=== PATIENT | male | born 1960 | race Asian ===

== ENCOUNTER 2023-08-21 16:42 | Inpatient (IN) | payer MEDICAID ==
[~2023-08-21] VITALS: Ht 167.6 cm; Wt 65.9 kg
[2023-08-21] MEDS: SODIUM CHLORIDE 0.9% 1,000 ML IV ONE (17:34)
[2023-08-21 17:49] LABS: BASOPHILS % 0.9 % (0.0-2.0); EOSINOPHILS % 2.4 % (0.0-5.0); HEMOGLOBIN. 12.1 g/dL (14.0-18.0); LYMPHOCYTES % 23.9 % (20.0-50.0); MEAN CORPUSCULAR HEMOGLOBIN 31.6 pg (28.0-32.0); MEAN CORPUSCULAR HGB CONC 35.7 g/dL (31.0-37.0); MEAN CORPUSCULAR VOLUME 88.6 fL (80.0-94.0); MONOCYTES % 5.3 % (2.0-8.0); NEUTROPHILS % 67.5 % (40.0-76.0); PLATELET 352 x1000/uL (130-400); RED BLOOD CELL COUNT 3.84 mill/uL (4.7-6.1); RED CELL DISTRIBUTION WIDTH 13.1 % (11.6-14.6); WHITE BLOOD COUNT 7.3 x1000/uL (4.5-11.0)
[2023-08-21 17:49] LABS: BG BASE EXCESS 1.5 mmol/L (-2.0-2.0); BG CARBOXYHEMOGLOBIN 3.7 % (0.5-1.5); BG DEOXYHEMOGLOBIN 4.1 % (0.0-5.0); BG FRACTION INSPIRED OXYGEN 21; BG HCO3 ACT 26.5 mmol/L (22.0-26.0); BG OXYGEN SATURATION 95.7 % (92.0-98.5); BG OXYHEMOGLOBIN 92.2 % (94.0-97.0); BG PCO2 43.1 mmHg (35.0-45.0); BG PH 7.406 (7.350-7.450); BG SAMPLE SITE RIGHT RADIAL; BG TOTAL HEMOGLOBIN 12.4 g/dL (12.0-18.0); BG VENT MODE ROOM AIR
[2023-08-21 17:55] LABS: CARBON DIOXIDE 28 mEq/L (21-32); CHLORIDE 102 mEq/L (98-107); POTASSIUM 4.3 mEq/L (3.5-5.1); SODIUM 132 mEq/L (136-145)
[2023-08-21 17:56] LABS: CALCIUM 7.5 mg/dL (8.7-10.4)
[2023-08-21 18:00] LABS: CREATININE 1.7 mg/dL (0.6-1.3)
[2023-08-21 18:01] LABS: GLUCOSE 400 mg/dL (70-105); UREA NITROGEN BLOOD 29 mg/dL (9-23)
[2023-08-21 18:02] LABS: ALANINE AMINOTRANSFERASE 13 IU/L (10-49); ALBUMIN 2.8 g/dL (3.2-4.8); ASPARTATE AMINOTRANSFERASE 20 IU/L (<34)
[2023-08-21 18:03] LABS: BILIRUBIN TOTAL 0.2 mg/dL (0.1-1.0); PROTEIN TOTAL 5.3 g/dL (6.0-8.3)
[2023-08-21 18:23] LABS: ETHANOL BLOOD < 10 mg/dL (<10)
[2023-08-21 18:24] LABS: TROPONIN I HIGH SENSITIVITY 1040 ng/L (3.0-53)
[2023-08-21 18:38] LABS: BETA HYDROXYBUTYRATE 0.2 mMol/L (0.0-0.3)
[2023-08-21] MEDS: MORPHINE SULFATE 2 MG/ML CPJ (NOT FOR IM USE) IV ONE (18:57)
[2023-08-21] MEDS: HEPARIN 5000 UNITS/ML VIAL IV ONE (19:00)
[2023-08-21] MEDS: NITROGLYCERIN 0.4MG TABLET SL SL ONE (19:00)
[2023-08-21 19:26] LABS: INR 0.9; PARTIAL THROMBOPLASTIN TIME 36.2 sec (23.4-31.0); PROTHROMBIN TIME 9.6 sec (9.6-11.0)
[2023-08-21] MEDS ORDERED: HEPARIN 60 UNITS/KG BOLUS IV NR (20:00)
[2023-08-21] MEDS: HEPARIN 25,000 UNITS PREMIX 250 ML IV SCH (20:07)
[2023-08-21] MEDS ORDERED: IPRATROPIUM/ALBUTEROL 0.5-3(2.5)MG/3ML NEB NEB PRN (20:15)
[2023-08-21] MEDS ORDERED: DEXTROSE 50% WATER 50ML SYRINGE IV PRN (20:15)
[2023-08-21] MEDS ORDERED: NITROGLYCERIN 0.4MG TABLET SL SL PRN (20:15)
[2023-08-21] MEDS ORDERED: AMLODIPINE 10MG TABLET PO SCH (20:15)
[2023-08-21] MEDS ORDERED: MAGNESIUM/ALUMINUM HYDROXIDE/SIMETHICONE 30ML UDC PO PRN (20:15)
[2023-08-21] MEDS ORDERED: GUAIFENESIN 200MG/10ML SUGAR FREE UDC PO PRN (20:15)
[2023-08-21] MEDS ORDERED: ACETAMINOPHEN 325MG TABLET PO PRN ×2 (20:15)
[2023-08-21] MEDS: NITROGLYCERIN OINT 1GM/INCH UDPKT TD SCH (20:38)
[2023-08-21] MEDS: AMLODIPINE 5MG TABLET PO NR (20:39)
[2023-08-21 20:42] LABS: IRON 36 ug/dL (65-175)
[2023-08-21 20:43] LABS: LDL CHOLESTEROL 225 mg/dL (5-100); TRIGLYCERIDE 208 mg/dL (0-150)
[2023-08-21 20:45] LABS: CHOLESTEROL 276 mg/dL (<200); HDL CHOLESTEROL 40 mg/dL (>55); TOTAL IRON BINDING CAPACITY 256 ug/dl (250-425)
[2023-08-21 20:48] LABS: FOLIC ACID (FOLATE) SERUM 12.44 ng/mL (>5.38); VITAMIN B12 SERUM 1067 pg/mL (211-911)
[2023-08-21 20:49] LABS: T4 FREE 0.91 ng/dL (0.89-1.76); THYROID STIMULATING HORMONE 1.95 uIU/mL (0.55-4.78)
[2023-08-21] MEDS: LORAZEPAM 2MG/ML INJ IV ONE (20:56)
[2023-08-21] MEDS: BLOOD SUGAR DIAGNOSTIC STRIP TEST SCH (21:00)
[2023-08-21] MEDS ORDERED: INSULIN GLARGINE 100 UNITS/ML SUBCUT SCH (22:00)
[2023-08-21] MEDS: ONDANSETRON HCL 4MG/2ML INJ IV PRN (23:48)
[2023-08-22] MEDS ORDERED: HEPARIN BOLUS PRN aPTT <30 IV (02:00)
[2023-08-22] MEDS ORDERED: HEPARIN BOLUS PRN aPTT 30-44 IV (02:00)
[2023-08-22 02:01] LABS: HEMATOCRIT 36.7 % (42.0-52.0); HEMOGLOBIN 12.5 g/dL (14.0-18.0); MEAN CORPUSCULAR HEMOGLOBIN 30.4 pg (28.0-32.0); MEAN CORPUSCULAR VOLUME 89.3 fL (80.0-94.0); PLATELET 345 x1000/uL (130-400); RED BLOOD CELL COUNT 4.11 mill/uL (4.7-6.1); RED CELL DISTRIBUTION WIDTH 13.3 % (11.6-14.6); WHITE BLOOD COUNT 9.7 x1000/uL (4.5-11.0)
[2023-08-22 02:17] LABS: POTASSIUM 4.3 mEq/L (3.5-5.1)
[2023-08-22 02:19] LABS: CALCIUM 7.6 mg/dL (8.7-10.4)
[2023-08-22 02:24] LABS: CREATININE 1.5 mg/dL (0.6-1.3)
[2023-08-22 02:53] VITALS: BP 164/86; PULSE 97; RESP 18; TEMP 97.5
[2023-08-22 03:28] LABS: CREATINE KINASE MB FRACTION 54.2 ng/mL (0.5-3.6)
[2023-08-22] MEDS: INSULIN LISPRO 100 UNITS/ML SUBCUT SCH ×2 (06:42→08:18)
[2023-08-22] MEDS: ENOXAPARIN 60MG/0.6ML SYR SUBCUT SCH ×2 (06:48→17:29)
[2023-08-22 07:08] LABS: CREATINE KINASE MB FRACTION 63.9 ng/mL (0.5-3.6)
[2023-08-22 07:09] LABS: CREATINE KINASE 755 IU/L (46-171)
[2023-08-22 07:10] LABS: PHOSPHORUS 3.4 mg/dL (2.5-4.9)
[2023-08-22 07:14] LABS: BASOPHILS % 0.6 % (0.0-2.0); EOSINOPHILS % 0.2 % (0.0-5.0); HEMATOCRIT. 36.5 % (42.0-52.0); HEMOGLOBIN. 12.6 g/dL (14.0-18.0); LYMPHOCYTES % 14.4 % (20.0-50.0); MEAN CORPUSCULAR HEMOGLOBIN 31.1 pg (28.0-32.0); MEAN CORPUSCULAR HGB CONC 34.7 g/dL (31.0-37.0); MEAN CORPUSCULAR VOLUME 89.6 fL (80.0-94.0); MEAN PLATELET VOLUME 7.7 fl (7.4-10.4); MONOCYTES % 2.8 % (2.0-8.0); PLATELET 361 x1000/uL (130-400); RED BLOOD CELL COUNT 4.07 mill/uL (4.7-6.1); WHITE BLOOD COUNT 8.6 x1000/uL (4.5-11.0)
[2023-08-22 07:45] LABS: TROPONIN I HIGH SENSITIVITY 19194 ng/L (3.0-53)
[2023-08-22 08:00] VITALS: BP 149/79; PULSE 80; RESP 18; TEMP 97.9
[2023-08-22] MEDS: ASPIRIN 325MG EC TABLET PO SCH (08:00)
[2023-08-22] MEDS: METOPROLOL TARTRATE 25MG TABLET PO SCH (08:16)
[2023-08-22] MEDS: FAMOTIDINE 20MG TABLET PO SCH (08:17)
[2023-08-22] MEDS: LOSARTAN 50 MG TABLET PO SCH (08:17)
[2023-08-22] MEDS: AMLODIPINE 10MG TABLET PO SCH (08:18)
[2023-08-22] MEDS ORDERED: DIPHENHYDRAMINE 50MG/ML VIAL ONE (08:42)
[2023-08-22] MEDS ORDERED: HEPARIN 1000 UNITS/ML 10ML ONE (08:42)
[2023-08-22] MEDS ORDERED: VERAPAMIL HCL 2.5 MG/1 ML 2ML VIAL IV ONE (08:42)
[2023-08-22] MEDS ORDERED: LIDOCAINE HCL 1% 20ML VIAL (Pyxis) INJ ONE (08:42)
[2023-08-22] MEDS ORDERED: IODIXANOL 320MG/ML 100 ML BOTTLE IV ONE (08:42)
[2023-08-22] MEDS ORDERED: AMLODIPINE 10MG TABLET PO SCH (09:00)
[2023-08-22] MEDS ORDERED: ASPIRIN 325MG EC TABLET PO SCH (09:00)
[2023-08-22] MEDS: INSULIN GLARGINE 100 UNITS/ML SUBCUT SCH (10:08)
[2023-08-22] MEDS: SODIUM CHLORIDE 0.9% 1,000 ML IV SCH (10:26)
[2023-08-22 12:16] VITALS: BP 109/56; PULSE 66; RESP 18; TEMP 96.9
[2023-08-22] MEDS: DEXT 5%/LACTATED RINGERS 1,000 ML IV SCH (12:49)
[2023-08-22] MEDS: DEXTROSE 50% WATER 50ML SYRINGE IV PRN (13:12)
[2023-08-22 16:00] VITALS: BP 107/64; PULSE 50; RESP 20; TEMP 98.8
[2023-08-22 20:00] VITALS: BP 148/81; PULSE 59; RESP 20; TEMP 97.2
[2023-08-22] MEDS: ATORVASTATIN CALCIUM 40MG TABLET PO SCH (21:29)
[2023-08-23] VITALS: BP 133/69; PULSE 63; RESP 18; TEMP 97.7
[2023-08-23 04:00] VITALS: BP 124/70; PULSE 60; RESP 18; TEMP 97.1
[2023-08-23 08:00] VITALS: BP 150/79; PULSE 56; RESP 18; TEMP 97.9
[2023-08-23] MEDS ORDERED: HEPARIN 1000 UNITS/ML 10ML ONE (08:06)
[2023-08-23] MEDS ORDERED: LIDOCAINE HCL 1% 10 MG/ML 10ML VIAL ONE (08:06)
[2023-08-23] MEDS ORDERED: IODIXANOL 320MG/ML 100 ML BOTTLE IV ONE (08:07)
[2023-08-23] MEDS ORDERED: ATROPINE SULFATE 1MG/10ML SYR IV PRN (11:00)
[2023-08-23] MEDS: CLONIDINE 0.1MG TABLET PO PRN (11:20)
[2023-08-23] MEDS: HYDRALAZINE 20MG/ML VIAL IV PRN (11:59)
[2023-08-23 12:00] VITALS: BP 141/67; PULSE 56; RESP 18; TEMP 97.5
[2023-08-23 20:00] VITALS: BP 133/72; PULSE 76; RESP 19; TEMP 97.4
[2023-08-24] VITALS (7 sets, daily range): BP systolic 133–154; BP diastolic 66–76; PULSE 54–74; RESP 18–21; TEMP 97.5–98.8
[2023-08-24 00:20] LABS: CLARITY URINE CLEAR (CLEAR); COLOR URINE YELLOW (YELLOW); GLUCOSE URINE TRACE (NEGATIVE); KETONES URINE NEGATIVE (NEGATIVE); LEUKOCYTE ESTERASE URINE NEGATIVE (NEGATIVE); NITRITE URINE NEGATIVE (NEGATIVE); OCCULT BLOOD URINE NEGATIVE (NEGATIVE); PH URINE 6.5 (4.5-8.0); PROTEIN URINE 4+ (NEGATIVE); SPECIFIC GRAVITY URINE 1.014 (1.005-1.030); UROBILINOGEN URINE 0.2 E.U./dL (0.2-1.0)
[2023-08-24 00:35] LABS: RBC URINE 0-2 /hpf (0-2); SQUAMOUS EPITHELIAL CELL URINE 1+ /lpf (RARE/1+); WBC URINE 0-2 /hpf (0-2)
[2023-08-24 00:36] LABS: BACTERIA URINE TRACE; HYALINE CASTS URINE 0-5 /lpf
[2023-08-24 08:02] LABS: BASOPHILS % 0.6 % (0.0-2.0); EOSINOPHILS % 2.5 % (0.0-5.0); HEMATOCRIT. 37.1 % (42.0-52.0); HEMOGLOBIN. 12.4 g/dL (14.0-18.0); LYMPHOCYTES % 30.4 % (20.0-50.0); MEAN CORPUSCULAR HEMOGLOBIN 29.8 pg (28.0-32.0); MEAN CORPUSCULAR HGB CONC 33.3 g/dL (31.0-37.0); MEAN CORPUSCULAR VOLUME 89.4 fL (80.0-94.0); MEAN PLATELET VOLUME 7.6 fl (7.4-10.4); MONOCYTES % 5.9 % (2.0-8.0); NEUTROPHILS % 60.6 % (40.0-76.0); PLATELET 453 x1000/uL (130-400); RED BLOOD CELL COUNT 4.15 mill/uL (4.7-6.1); RED CELL DISTRIBUTION WIDTH 13.5 % (11.6-14.6); WHITE BLOOD COUNT 11.7 x1000/uL (4.5-11.0)
[2023-08-24 08:09] LABS: CARBON DIOXIDE 27 mEq/L (21-32); CHLORIDE 108 mEq/L (98-107); POTASSIUM 3.2 mEq/L (3.5-5.1); SODIUM 140 mEq/L (136-145)
[2023-08-24 08:15] LABS: CREATININE 1.5 mg/dL (0.6-1.3); UREA NITROGEN BLOOD 21 mg/dL (9-23)
[2023-08-24 08:33] LABS: GLUCOSE 68 mg/dL (70-105)
[2023-08-24] MEDS ORDERED: NALOXONE HCL 0.4MG/ML VIAL IV PRN (12:00)
[2023-08-24] MEDS: DOCUSATE SODIUM 100MG CAPSULE PO PRN (12:25)
[2023-08-25] VITALS: BP 166/80; PULSE 60; RESP 20; TEMP 97.9
[2023-08-25] MEDS: TRAMADOL 50MG TABLET PO PRN (00:26)
[2023-08-25 04:00] VITALS: BP 140/75; PULSE 58; RESP 20; TEMP 98.1
[2023-08-25 08:00] VITALS: BP 147/77; PULSE 65; RESP 20; TEMP 97.1
[2023-08-25 08:21] LABS: HEMATOCRIT. 33.3 % (42.0-52.0); HEMOGLOBIN. 11.3 g/dL (14.0-18.0); LYMPHOCYTES % 35.2 % (20.0-50.0); MEAN CORPUSCULAR HEMOGLOBIN 30.5 pg (28.0-32.0); MEAN CORPUSCULAR HGB CONC 34.1 g/dL (31.0-37.0); MEAN CORPUSCULAR VOLUME 89.4 fL (80.0-94.0); MEAN PLATELET VOLUME 7.8 fl (7.4-10.4); NEUTROPHILS % 53.8 % (40.0-76.0); PLATELET 363 x1000/uL (130-400); RED BLOOD CELL COUNT 3.72 mill/uL (4.7-6.1); RED CELL DISTRIBUTION WIDTH 13.1 % (11.6-14.6); WHITE BLOOD COUNT 8.7 x1000/uL (4.5-11.0)
[2023-08-25 08:30] LABS: CARBON DIOXIDE 26 mEq/L (21-32); CHLORIDE 109 mEq/L (98-107); POTASSIUM 3.4 mEq/L (3.5-5.1); SODIUM 140 mEq/L (136-145)
[2023-08-25 08:31] LABS: CALCIUM 8.1 mg/dL (8.7-10.4)
[2023-08-25 08:35] LABS: CREATININE 1.5 mg/dL (0.6-1.3)
[2023-08-25 08:36] LABS: GLUCOSE 99 mg/dL (70-105); UREA NITROGEN BLOOD 23 mg/dL (9-23)
[2023-08-25 08:38] LABS: PHOSPHORUS 3.7 mg/dL (2.5-4.9)
[2023-08-25 12:00] VITALS: BP 155/86; PULSE 69; RESP 20; TEMP 98.1
[2023-08-25] MEDS: POTASSIUM CHLORIDE 20MEQ TABLET SR PO NR (13:01)
[2023-08-25] MEDS: LACTULOSE 20G/30ML UDC PO NR (13:01)
[2023-08-25 16:00] VITALS: BP 147/81; PULSE 68; RESP 20; TEMP 98.2
[2023-08-25 16:01] LABS: HEPATITIS B SURFACE ANTIGEN NEGATIVE (Negative)
[2023-08-25 16:22] LABS: HEPATITIS C AB NON REACTIVE (Neg) (Negative)
[2023-08-25 17:06] LABS: CREATININE URINE RANDOM 41.5 mg/dL
[2023-08-25 20:00] VITALS: BP 179/91; PULSE 72; RESP 20; TEMP 98
[2023-08-25 23:06] LABS: BG CARBOXYHEMOGLOBIN 0.6 % (0.5-1.5); BG DEOXYHEMOGLOBIN 6.4 % (0.0-5.0); BG FRACTION INSPIRED OXYGEN 21; BG HCO3 ACT 26.9 mmol/L (22.0-26.0); BG METHEMOGLOBIN 0.1 % (0.0-1.5); BG OXYGEN SATURATION 93.6 % (92.0-98.5); BG OXYHEMOGLOBIN 92.9 % (94.0-97.0); BG PCO2 47.3 mmHg (35.0-45.0); BG PH 7.372 (7.350-7.450); BG PO2 70.3 mmHg (75.0-100.0); BG SAMPLE SITE LEFT RADIAL; BG TOTAL HEMOGLOBIN 14.1 g/dL (12.0-18.0); BG VENT MODE ROOM AIR
[2023-08-26] VITALS (7 sets, daily range): BP systolic 140–174; BP diastolic 63–81; PULSE 56–74; RESP 18–20; TEMP 97–97.8
[2023-08-26] MEDS: ZOLPIDEM TARTRATE 5MG TABLET PO PRN (03:19)
[2023-08-26 06:41] LABS: BASOPHILS % 0.8 % (0.0-2.0); EOSINOPHILS % 4.3 % (0.0-5.0); HEMATOCRIT. 34.9 % (42.0-52.0); LYMPHOCYTES % 36.1 % (20.0-50.0); MEAN CORPUSCULAR HEMOGLOBIN 30.8 pg (28.0-32.0); MEAN CORPUSCULAR HGB CONC 34.4 g/dL (31.0-37.0); MEAN CORPUSCULAR VOLUME 89.7 fL (80.0-94.0); MEAN PLATELET VOLUME 7.4 fl (7.4-10.4); MONOCYTES % 6.5 % (2.0-8.0); NEUTROPHILS % 52.3 % (40.0-76.0); PLATELET 364 x1000/uL (130-400); POTASSIUM 3.6 mEq/L (3.5-5.1); RED BLOOD CELL COUNT 3.89 mill/uL (4.7-6.1); RED CELL DISTRIBUTION WIDTH 13.2 % (11.6-14.6); WHITE BLOOD COUNT 7.9 x1000/uL (4.5-11.0)
[2023-08-26 06:43] LABS: CALCIUM 8.3 mg/dL (8.7-10.4)
[2023-08-26 06:47] LABS: CREATININE 1.3 mg/dL (0.6-1.3)
[2023-08-26] MEDS: ACETAMINOPHEN 325MG TABLET PO PRN (20:46)
[2023-08-26] MEDS: TRAMADOL 50MG TABLET PO PRN (23:33)
[2023-08-27] VITALS (7 sets, daily range): BP systolic 93–183; BP diastolic 54–80; PULSE 61–80; RESP 18–20; TEMP 96.7–98.1
[2023-08-27] MEDS: ZOLPIDEM TARTRATE 5MG TABLET PO PRN (00:27)
[2023-08-27 07:56] LABS: HEMATOCRIT. 35.6 % (42.0-52.0); LYMPHOCYTES % 28.6 % (20.0-50.0); MEAN CORPUSCULAR HEMOGLOBIN 30.4 pg (28.0-32.0); MEAN CORPUSCULAR HGB CONC 33.7 g/dL (31.0-37.0); MEAN CORPUSCULAR VOLUME 90.2 fL (80.0-94.0); MEAN PLATELET VOLUME 7.6 fl (7.4-10.4); NEUTROPHILS % 59.4 % (40.0-76.0); PLATELET 411 x1000/uL (130-400); RED BLOOD CELL COUNT 3.95 mill/uL (4.7-6.1); RED CELL DISTRIBUTION WIDTH 13.3 % (11.6-14.6); WHITE BLOOD COUNT 8.4 x1000/uL (4.5-11.0)
[2023-08-27 08:13] LABS: POTASSIUM 3.8 mEq/L (3.5-5.1)
[2023-08-27 08:15] LABS: CALCIUM 8.4 mg/dL (8.7-10.4)
[2023-08-27 08:19] LABS: CREATININE 1.4 mg/dL (0.6-1.3)
[2023-08-27] MEDS: FUROSEMIDE 20MG/2ML VIAL IVP SCH (20:17)
[2023-08-27] MEDS: LORAZEPAM 0.5MG TABLET PO PRN (20:27)
[2023-08-28] VITALS: BP_SYST 120; BP_SYST 126; BP_SYST 149; BP_SYST 183; BP_DIAS 55; BP_DIAS 62; BP_DIAS 68; BP_DIAS 80; PULSE 60; PULSE 78; PULSE 80; RESP 20; TEMP 97.1; TEMP 97.6; TEMP 97.8
[2023-08-28 04:00] VITALS: BP 139/62; PULSE 61; RESP 18; TEMP 97.3
[2023-08-28 05:55] LABS: POTASSIUM 4.1 mEq/L (3.5-5.1)
[2023-08-28 05:56] LABS: CALCIUM 8.2 mg/dL (8.7-10.4)
[2023-08-28 06:01] LABS: CREATININE 1.4 mg/dL (0.6-1.3)
[2023-08-28 06:07] LABS: EOSINOPHILS % 5.9 % (0.0-5.0); HEMOGLOBIN. 11.3 g/dL (14.0-18.0); LYMPHOCYTES % 38.1 % (20.0-50.0); MEAN CORPUSCULAR HEMOGLOBIN 30.8 pg (28.0-32.0); MEAN CORPUSCULAR HGB CONC 34.3 g/dL (31.0-37.0); MEAN CORPUSCULAR VOLUME 89.8 fL (80.0-94.0); MEAN PLATELET VOLUME 7.6 fl (7.4-10.4); MONOCYTES % 8.1 % (2.0-8.0); NEUTROPHILS % 46.9 % (40.0-76.0); PLATELET 360 x1000/uL (130-400); RED BLOOD CELL COUNT 3.67 mill/uL (4.7-6.1); RED CELL DISTRIBUTION WIDTH 13.1 % (11.6-14.6); WHITE BLOOD COUNT 7.2 x1000/uL (4.5-11.0)
[2023-08-28 08:00] VITALS: BP 129/65; PULSE 63; RESP 18; TEMP 97.6
[2023-08-28 12:00] VITALS: BP 139/62; PULSE 65; RESP 18; TEMP 97
[2023-08-28 16:00] VITALS: BP 131/61; PULSE 62; RESP 18; TEMP 97.2
[2023-08-28] MEDS ORDERED: ALPRAZOLAM 0.25 MG TABLET PO PRN (16:30)
[2023-08-28] MEDS ORDERED: ACETAMINOPHEN 325MG TABLET PO PRN ×2 (16:30)
[2023-08-28 20:00] VITALS: BP 176/80; PULSE 74; RESP 18; TEMP 98.1
[2023-08-28] MEDS ORDERED: BISACODYL 10MG SUPP PR PRN (21:00)
[2023-08-28] MEDS: DOCUSATE SODIUM 100MG CAPSULE PO SCH (21:10)
[2023-08-28] MEDS: ASCORBIC ACID 500 MG TABLET PO SCH (21:11)
[2023-08-28] MEDS: ALLOPURINOL 300 MG TABLET PO SCH (21:11)
[2023-08-28] MEDS: CHLORHEXIDINE GLUCONATE 4% EXTERNAL USE TOP SCH (21:12)
[2023-08-29] VITALS (47 sets, daily range): BP systolic 66–168; BP diastolic 38–98; PULSE 56–94; RESP 13–24; TEMP 97.1–98.2; O2SAT 97
[2023-08-29] MEDS: CHLORHEXIDINE GLUCONATE 4% EXTERNAL USE TOP SCH (04:35)
[2023-08-29] MEDS: CEFAZOLIN 2GM/100ML 100 ML IV SCH (04:55)
[2023-08-29] MEDS ORDERED: NOREPINEPHRINE 8MG/250ML PMX 250 ML IV NR (05:00)
[2023-08-29] MEDS ORDERED: AMINOCAPROIC ACID 5,000 MG in SODIUM CHLORIDE 0.9% 250 ML IV NR (05:00)
[2023-08-29] MEDS ORDERED: EPINEPHRINE 5 MG in DEXT 5% WATER 250 ML IV NR (05:00)
[2023-08-29] MEDS ORDERED: INSULIN REGULAR 100 U/100 ML PREMIX IV NR (05:00)
[2023-08-29] MEDS ORDERED: NICARDIPINE 40MG/200ML PREMIX 200 ML IV NR (05:00)
[2023-08-29] MEDS ORDERED: PAPAVERINE HCL 180MG in SODIUM CHLORIDE 0.9% 24ML IV NR (05:00)
[2023-08-29] MEDS ORDERED: CEFAZOLIN 2GM/100ML 100 ML IV NR (05:00)
[2023-08-29] MEDS ORDERED: DEL NIDO CARDIOPLEGIA 1,000 ML (PREMIX) IV NR ×2 (05:00)
[2023-08-29] MEDS ORDERED: DOBUTAMINE 250 MG/250 ML PREMIX IV NR (05:00)
[2023-08-29] MEDS ORDERED: LR with VERAPAMIL, NTG, HEPARIN, SODIUM BICARBONATE (Soln) IV NR (05:00)
[2023-08-29 05:11] LABS: BASOPHILS % 0.7 % (0.0-2.0); EOSINOPHILS % 5.8 % (0.0-5.0); HEMATOCRIT. 33.5 % (42.0-52.0); HEMOGLOBIN. 11.7 g/dL (14.0-18.0); LYMPHOCYTES % 36.3 % (20.0-50.0); MEAN CORPUSCULAR HGB CONC 34.9 g/dL (31.0-37.0); MEAN CORPUSCULAR VOLUME 88.9 fL (80.0-94.0); MEAN PLATELET VOLUME 7.5 fl (7.4-10.4); MONOCYTES % 7.1 % (2.0-8.0); NEUTROPHILS % 50.1 % (40.0-76.0); PLATELET 358 x1000/uL (130-400); RED BLOOD CELL COUNT 3.76 mill/uL (4.7-6.1); RED CELL DISTRIBUTION WIDTH 13.3 % (11.6-14.6); WHITE BLOOD COUNT 7.7 x1000/uL (4.5-11.0)
[2023-08-29 05:18] LABS: CHLORIDE 110 mEq/L (98-107); POTASSIUM 3.8 mEq/L (3.5-5.1); SODIUM 139 mEq/L (136-145)
[2023-08-29 05:20] LABS: CALCIUM 8.5 mg/dL (8.7-10.4); CARBON DIOXIDE 24 mEq/L (21-32)
[2023-08-29 05:25] LABS: CREATININE 1.2 mg/dL (0.6-1.3); GLUCOSE 229 mg/dL (70-105); UREA NITROGEN BLOOD 20 mg/dL (9-23)
[2023-08-29 05:27] LABS: ALANINE AMINOTRANSFERASE 28 IU/L (10-49); ALBUMIN 2.6 g/dL (3.2-4.8); ASPARTATE AMINOTRANSFERASE 30 IU/L (<34); PHOSPHORUS 3.5 mg/dL (2.5-4.9)
[2023-08-29 05:28] LABS: BILIRUBIN TOTAL 0.2 mg/dL (0.1-1.0); PROTEIN TOTAL 4.6 g/dL (6.0-8.3)
[2023-08-29] MEDS ORDERED: POLYMYXIN B SULFATE 500000 UNITS/VIAL ONE (05:29)
[2023-08-29] MEDS ORDERED: SKIN ADHESIVE 0.7 GM EA TOP ONE (05:30)
[2023-08-29] MEDS ORDERED: THROMBIN (BOVINE) 5000 UNITS/VIAL TOP ONE (05:30)
[2023-08-29] MEDS ORDERED: ACETAMINOPHEN 500MG TABLET ONE (05:32)
[2023-08-29] MEDS ORDERED: HEPARIN 1000 UNITS/ML 10ML ONE ×2 (05:34→08:29)
[2023-08-29 05:41] LABS: INR 0.9; PROTHROMBIN TIME 10.1 sec (9.6-11.0)
[2023-08-29] MEDS ORDERED: INSULIN REGULAR 100 U/100 ML PREMIX IV PRN (06:00)
[2023-08-29] MEDS ORDERED: EPINEPHRINE 5 MG in DEXT 5% WATER 250 ML IV PRN (06:00)
[2023-08-29] MEDS ORDERED: PAPAVERINE HCL 180MG in SODIUM CHLORIDE 0.9% 24ML IV PRN (06:00)
[2023-08-29] MEDS ORDERED: NOREPINEPHRINE 8MG/250ML PMX 250 ML IV PRN (06:00)
[2023-08-29] MEDS ORDERED: DEL NIDO CARDIOPLEGIA 1,000 ML (PREMIX) IV SCH ×2 (06:00)
[2023-08-29] MEDS ORDERED: PROPOFOL 200MG/20ML VIAL IV ONE (07:14)
[2023-08-29] MEDS ORDERED: LIDOCAINE HCL/PF 2% 20MG/ML 5 ML/VIAL ONE (07:14)
[2023-08-29] MEDS ORDERED: ROCURONIUM BROMIDE 10MG/ML VIAL 5ML IV ONE (07:14)
[2023-08-29] MEDS ORDERED: MIDAZOLAM HCL 2 MG/2 ML VIAL ONE (07:15)
[2023-08-29] MEDS ORDERED: FENTANYL CITRATE/PF 50MCG/ML 5ML VIAL ONE (07:15)
[2023-08-29] MEDS ORDERED: ONDANSETRON HCL 4MG/2ML INJ ONE ×2 (07:16→12:42)
[2023-08-29] MEDS ORDERED: METOCLOPRAMIDE HCL 10MG/2ML VIAL ONE (07:16)
[2023-08-29] MEDS ORDERED: ESMOLOL HCL 10MG/ML 10ML VIAL IV ONE (07:16)
[2023-08-29] MEDS ORDERED: LABETALOL HCL 5MG/ML VIAL 20ML IV ONE (07:48)
[2023-08-29] MEDS ORDERED: VECURONIUM BROMIDE 10 MG/VIAL IV ONE ×2 (08:04→10:59)
[2023-08-29 08:10] LABS: ANTI-NUCLEAR ANTIBODIES DIRECT Negative (Negative); COMPLEMENT C3 139 mg/dL (82-167); COMPLEMENT C4 41 mg/dL (12-38)
[2023-08-29] MEDS ORDERED: AMINOCAPROIC ACID 250 MG/ML 20ML VIAL ONE (08:25)
[2023-08-29] MEDS ORDERED: SODIUM BICARBONATE 8.4% 1 MEQ/ML 50ML SYR IV ONE (09:49)
[2023-08-29] MEDS ORDERED: PROPOFOL 10MG/ML 100ML 100 ML IV ONE ×2 (10:03→13:25)
[2023-08-29] MEDS ORDERED: CEFAZOLIN SODIUM 1000MG/VIAL ONE (10:04)
[2023-08-29 10:06] LABS: A/G RATIO 0.7 (0.7-1.7); ALBUMIN 1.7 g/dL (2.9-4.4); ALPHA-1-GLOBULIN 0.2 g/dL (0.0-0.4); ALPHA-2-GLOBULIN 0.9 g/dL (0.4-1.0); BETA GLOBULIN 0.9 g/dL (0.7-1.3); GAMMA GLOBULINS 0.5 g/dL (0.4-1.8); GLOBULIN TOTAL 2.6 g/dL (2.2-3.9); M-SPIKE Not Observed g/dL (Not Observed); TOTAL PROTEIN SERUM 4.3 g/dL (6.0-8.5)
[2023-08-29] MEDS ORDERED: MAGNESIUM 2 G PREMIX 50 ML IV PRN (11:00)
[2023-08-29] MEDS ORDERED: MAGNESIUM 1 G PREMIX 100 ML IV PRN ×2 (11:00→14:15)
[2023-08-29] MEDS ORDERED: MAGNESIUM SULFATE 3 GM in DEXT 5% WATER 100 ML IV PRN ×2 (11:00→14:15)
[2023-08-29] MEDS ORDERED: DESMOPRESSIN ACETATE IVPB 20 MCG in SODIUM CHLORIDE 0.9% 50 ML IV NR (11:45)
[2023-08-29] MEDS ORDERED: KCL 10MEQ/50ML PREMIX 200 ML IV PRN (12:00)
[2023-08-29] MEDS ORDERED: KCL 10MEQ/50ML PREMIX 100 ML IV PRN (12:00)
[2023-08-29] MEDS ORDERED: PROTAMINE SULFATE 10MG/ML VIAL 25ML IV ONE (12:14)
[2023-08-29] MEDS ORDERED: CALCIUM CHLORIDE 1GM/10ML SYR IV ONE (12:22)
[2023-08-29] MEDS ORDERED: HYDRALAZINE 20MG/ML VIAL ONE (12:49)
[2023-08-29] MEDS ORDERED: FENTANYL CITRATE/PF 50MCG/ML 2ML VIAL ONE (12:49)
[2023-08-29] MEDS ORDERED: NEOSTIGMINE METHYLSULFATE 1MG/ML 10 ML VIAL ONE (13:22)
[2023-08-29] MEDS ORDERED: GLYCOPYRROLATE 0.2 MG/ML 2ML VIAL ONE (13:22)
[2023-08-29 13:32] LABS: BASOPHILS % 0.6 % (0.0-2.0); HEMATOCRIT. 33.4 % (42.0-52.0); HEMOGLOBIN. 11.6 g/dL (14.0-18.0); LYMPHOCYTES % 19.3 % (20.0-50.0); MEAN CORPUSCULAR HEMOGLOBIN 30.8 pg (28.0-32.0); MEAN CORPUSCULAR HGB CONC 34.7 g/dL (31.0-37.0); MEAN CORPUSCULAR VOLUME 88.8 fL (80.0-94.0); MEAN PLATELET VOLUME 7.2 fl (7.4-10.4); MONOCYTES % 3.5 % (2.0-8.0); NEUTROPHILS % 74.6 % (40.0-76.0); PLATELET 243 x1000/uL (130-400); RED BLOOD CELL COUNT 3.76 mill/uL (4.7-6.1); RED CELL DISTRIBUTION WIDTH 13.7 % (11.6-14.6); WHITE BLOOD COUNT 12.8 x1000/uL (4.5-11.0)
[2023-08-29 13:50] LABS: CARBON DIOXIDE 26 mEq/L (21-32); CHLORIDE 107 mEq/L (98-107); POTASSIUM 3.6 mEq/L (3.5-5.1); SODIUM 141 mEq/L (136-145)
[2023-08-29 13:51] LABS: CALCIUM 9.5 mg/dL (8.7-10.4)
[2023-08-29 13:55] LABS: CREATININE 1.3 mg/dL (0.6-1.3); GLUCOSE 116 mg/dL (70-105); PARTIAL THROMBOPLASTIN TIME 23.2 sec (23.4-31.0); PROTHROMBIN TIME 10.8 sec (9.6-11.0)
[2023-08-29 13:56] LABS: UREA NITROGEN BLOOD 17 mg/dL (9-23)
[2023-08-29 13:57] LABS: ALANINE AMINOTRANSFERASE 22 IU/L (10-49); ALBUMIN 2.6 g/dL (3.2-4.8); ASPARTATE AMINOTRANSFERASE 39 IU/L (<34)
[2023-08-29 13:58] LABS: BILIRUBIN TOTAL 0.2 mg/dL (0.1-1.0); PROTEIN TOTAL 4.1 g/dL (6.0-8.3)
[2023-08-29] MEDS ORDERED: DEXTROSE 50% WATER 50ML SYRINGE IV PRN (14:00)
[2023-08-29] MEDS: BLOOD SUGAR DIAGNOSTIC STRIP TEST SCH (14:00)
[2023-08-29] MEDS ORDERED: SEVOFLURANE 250 ML LIQUID INH ONE (14:12)
[2023-08-29] MEDS: ALBUMIN HUMAN 25GM/500ML (5%) IV NR (14:14)
[2023-08-29] MEDS ORDERED: SODIUM CHLORIDE 0.9% 500 ML IV PRN (14:15)
[2023-08-29] MEDS ORDERED: DOPAMINE 400MG/250ML PREMIX 250 ML IV PRN (14:15)
[2023-08-29] MEDS ORDERED: ACETAMINOPHEN 325MG TABLET PO PRN (14:15)
[2023-08-29] MEDS ORDERED: ALBUMIN HUMAN 12.5G/250ML (5%) IV PRN (14:15)
[2023-08-29] MEDS: AMINOCAPROIC ACID 5,000 MG in SODIUM CHLORIDE 0.9% 250 ML IV PRN (14:24)
[2023-08-29] MEDS: DOPAMINE 400MG/250ML PREMIX 250 ML IV NR (14:25)
[2023-08-29] MEDS: INSULIN REGULAR 100U/100ML PMX 100 ML IV PRN (14:26)
[2023-08-29] MEDS: DEXMEDETOMIDINE 400 MCG/100 ML 100 ML IV PRN (14:41)
[2023-08-29] MEDS: DEXT 5%/0.45% NACL 1000ML 1,000 ML IV SCH (14:42)
[2023-08-29] MEDS ORDERED: LORAZEPAM 2MG/ML INJ IV PRN (15:00)
[2023-08-29 15:01] LABS: BG BASE EXCESS -3.7 mmol/L (-2.0-2.0); BG CARBOXYHEMOGLOBIN 0.3 % (0.5-1.5); BG DEOXYHEMOGLOBIN 9.7 % (0.0-5.0); BG FRACTION INSPIRED OXYGEN 100; BG HCO3 ACT 22.7 mmol/L (22.0-26.0); BG METHEMOGLOBIN 0.3 % (0.0-1.5); BG OXYGEN SATURATION 90.2 % (92.0-98.5); BG OXYHEMOGLOBIN 89.7 % (94.0-97.0); BG PCO2 46.7 mmHg (35.0-45.0); BG PH 7.305 (7.350-7.450); BG PO2 62.2 mmHg (75.0-100.0); BG SAMPLE SITE ALINE; BG TOTAL HEMOGLOBIN 11.3 g/dL (12.0-18.0); BG VENT MODE MASK - NRB
[2023-08-29] MEDS: FENTANYL CITRATE/PF 50MCG/ML 2ML VIAL IV NR (15:02)
[2023-08-29] MEDS: KCL 10MEQ/50ML PREMIX 150 ML IV PRN (15:28)
[2023-08-29] MEDS ORDERED: NALOXONE HCL 0.4MG/ML VIAL IV PRN (15:30)
[2023-08-29] MEDS: MAGNESIUM HYDROXIDE 400MG/5ML 30ML UDC PO SCH (16:00)
[2023-08-29] MEDS: DOCUSATE SODIUM 100MG CAPSULE PO SCH (16:15)
[2023-08-29] MEDS: CEFAZOLIN 1000MG PREMIX 50 ML IV SCH (16:32)
[2023-08-29] MEDS: FAMOTIDINE 20MG/2ML VIAL IV SCH (16:53)
[2023-08-29] MEDS: NICARDIPINE 40MG/200ML PREMIX 200 ML IV PRN (17:55)
[2023-08-29] MEDS: MORPHINE SULFATE 2 MG/ML CPJ (NOT FOR IM USE) IV PRN (18:08)
[2023-08-29] MEDS: ONDANSETRON HCL 4MG/2ML INJ IV PRN (20:06)
[2023-08-29 20:12] LABS: CHLORIDE 114 mEq/L (98-107); POTASSIUM 4.3 mEq/L (3.5-5.1); SODIUM 144 mEq/L (136-145)
[2023-08-29 20:13] LABS: CARBON DIOXIDE 24 mEq/L (21-32)
[2023-08-29 20:14] LABS: CALCIUM 9.5 mg/dL (8.7-10.4)
[2023-08-29 20:15] LABS: HEMATOCRIT. 30.8 % (42.0-52.0); HEMOGLOBIN. 10.8 g/dL (14.0-18.0); MEAN CORPUSCULAR HEMOGLOBIN 31.2 pg (28.0-32.0); MEAN CORPUSCULAR HGB CONC 34.9 g/dL (31.0-37.0); MEAN CORPUSCULAR VOLUME 89.3 fL (80.0-94.0); MEAN PLATELET VOLUME 7.1 fl (7.4-10.4); PLATELET 231 x1000/uL (130-400); RED BLOOD CELL COUNT 3.45 mill/uL (4.7-6.1); RED CELL DISTRIBUTION WIDTH 14.1 % (11.6-14.6); WHITE BLOOD COUNT 12.2 x1000/uL (4.5-11.0)
[2023-08-29 20:18] LABS: CREATININE 1.6 mg/dL (0.6-1.3); DIFFERENTIAL COMMENT 1; GLUCOSE 92 mg/dL (70-105); UREA NITROGEN BLOOD 20 mg/dL (9-23)
[2023-08-29 20:21] LABS: PHOSPHORUS 2.2 mg/dL (2.5-4.9)
[2023-08-29] MEDS: IPRATROPIUM/ALBUTEROL 0.5-3(2.5)MG/3ML NEB HHN SCH (20:41)
[2023-08-29] MEDS: MAGNESIUM 2 G PREMIX 50 ML IV PRN (21:19)
[2023-08-29 21:36] LABS: PLATELET ESTIMATE NORMAL
[2023-08-29] MEDS: OXYCODONE HCL/ACETAMINOPHEN 5/325MG TABLET PO PRN (23:17)
[2023-08-30] VITALS (98 sets, daily range): BP systolic 104–178; BP diastolic 48–110; PULSE 70–94; RESP 0–26; TEMP 98.2–99.8; O2SAT 92–100
[2023-08-30 02:21] LABS: HEMATOCRIT 31.1 % (42.0-52.0); HEMOGLOBIN 10.7 g/dL (14.0-18.0); MEAN CORPUSCULAR HEMOGLOBIN 30.4 pg (28.0-32.0); MEAN CORPUSCULAR HGB CONC 34.3 g/dL (31.0-37.0); MEAN CORPUSCULAR VOLUME 88.7 fL (80.0-94.0); PLATELET 216 x1000/uL (130-400); RED BLOOD CELL COUNT 3.51 mill/uL (4.7-6.1); RED CELL DISTRIBUTION WIDTH 14.2 % (11.6-14.6); WHITE BLOOD COUNT 11.2 x1000/uL (4.5-11.0)
[2023-08-30 02:26] LABS: CHLORIDE 113 mEq/L (98-107); POTASSIUM 4.3 mEq/L (3.5-5.1); SODIUM 144 mEq/L (136-145)
[2023-08-30 02:27] LABS: CALCIUM 9.6 mg/dL (8.7-10.4); CARBON DIOXIDE 25 mEq/L (21-32)
[2023-08-30 02:32] LABS: CREATININE 1.8 mg/dL (0.6-1.3); GLUCOSE 115 mg/dL (70-105); UREA NITROGEN BLOOD 22 mg/dL (9-23)
[2023-08-30 02:34] LABS: PHOSPHORUS 3.9 mg/dL (2.5-4.9)
[2023-08-30 04:25] LABS: BG BASE EXCESS -1.7 mmol/L (-2.0-2.0); BG CARBOXYHEMOGLOBIN 0.3 % (0.5-1.5); BG DEOXYHEMOGLOBIN 2.6 % (0.0-5.0); BG FRACTION INSPIRED OXYGEN 32; BG HCO3 ACT 22.8 mmol/L (22.0-26.0); BG METHEMOGLOBIN 0.2 % (0.0-1.5); BG OXYGEN SATURATION 97.4 % (92.0-98.5); BG OXYHEMOGLOBIN 96.9 % (94.0-97.0); BG PCO2 37.5 mmHg (35.0-45.0); BG PH 7.401 (7.350-7.450); BG PO2 109.3 mmHg (75.0-100.0); BG SAMPLE SITE ALINE; BG TOTAL HEMOGLOBIN 11.4 g/dL (12.0-18.0); BG VENT MODE NASAL CANNULA
[2023-08-30 05:22] LABS: CHLORIDE 113 mEq/L (98-107); POTASSIUM 4.2 mEq/L (3.5-5.1); SODIUM 144 mEq/L (136-145)
[2023-08-30 05:23] LABS: BASOPHILS % 0.2 % (0.0-2.0); CARBON DIOXIDE 25 mEq/L (21-32); EOSINOPHILS % 0.1 % (0.0-5.0); HEMATOCRIT. 30.6 % (42.0-52.0); HEMOGLOBIN. 10.5 g/dL (14.0-18.0); LYMPHOCYTES % 10.7 % (20.0-50.0); MEAN CORPUSCULAR HEMOGLOBIN 30.9 pg (28.0-32.0); MEAN CORPUSCULAR HGB CONC 34.2 g/dL (31.0-37.0); MEAN CORPUSCULAR VOLUME 90.2 fL (80.0-94.0); MEAN PLATELET VOLUME 7.8 fl (7.4-10.4); MONOCYTES % 6.8 % (2.0-8.0); NEUTROPHILS % 82.2 % (40.0-76.0); PLATELET 222 x1000/uL (130-400); RED BLOOD CELL COUNT 3.39 mill/uL (4.7-6.1); RED CELL DISTRIBUTION WIDTH 14.1 % (11.6-14.6); WHITE BLOOD COUNT 11.2 x1000/uL (4.5-11.0)
[2023-08-30 05:24] LABS: CALCIUM 9.5 mg/dL (8.7-10.4)
[2023-08-30] MEDS: NITROGLYCERIN 0.4MG TABLET SL SL PRN (05:25)
[2023-08-30 05:28] LABS: CREATININE 1.9 mg/dL (0.6-1.3); GLUCOSE 84 mg/dL (70-105)
[2023-08-30 05:29] LABS: UREA NITROGEN BLOOD 22 mg/dL (9-23)
[2023-08-30 05:30] LABS: ALANINE AMINOTRANSFERASE 27 IU/L (10-49); ALBUMIN 3.3 g/dL (3.2-4.8); ASPARTATE AMINOTRANSFERASE 77 IU/L (<34)
[2023-08-30 05:31] LABS: BILIRUBIN TOTAL 0.3 mg/dL (0.1-1.0); PHOSPHORUS 4.8 mg/dL (2.5-4.9); PROTEIN TOTAL 4.8 g/dL (6.0-8.3)
[2023-08-30] MEDS: ASPIRIN 81MG EC TABLET PO SCH (14:50)
[2023-08-30] MEDS: METOPROLOL SUCCINATE 50MG ER TABLET PO SCH (14:52)
[2023-08-30] MEDS: DEXTROSE 50% WATER 50ML SYRINGE IV PRN (20:12)
[2023-08-30] MEDS: ATORVASTATIN CALCIUM 20MG TABLET PO SCH (21:29)
[2023-08-31] VITALS (92 sets, daily range): BP systolic 85–147; BP diastolic 40–84; PULSE 79–96; RESP 7–28; TEMP 98.4–99.8; O2SAT 94–98
[2023-08-31 06:35] LABS: BASOPHILS % 0.4 % (0.0-2.0); EOSINOPHILS % 0.3 % (0.0-5.0); HEMATOCRIT. 34.6 % (42.0-52.0); HEMOGLOBIN. 11.7 g/dL (14.0-18.0); LYMPHOCYTES % 12.3 % (20.0-50.0); MEAN CORPUSCULAR HEMOGLOBIN 30.7 pg (28.0-32.0); MEAN CORPUSCULAR HGB CONC 33.7 g/dL (31.0-37.0); MEAN CORPUSCULAR VOLUME 91.2 fL (80.0-94.0); MEAN PLATELET VOLUME 7.4 fl (7.4-10.4); MONOCYTES % 7.5 % (2.0-8.0); NEUTROPHILS % 79.5 % (40.0-76.0); PLATELET 233 x1000/uL (130-400); RED CELL DISTRIBUTION WIDTH 14.3 % (11.6-14.6); WHITE BLOOD COUNT 12.7 x1000/uL (4.5-11.0)
[2023-08-31 06:38] LABS: CARBON DIOXIDE 23 mEq/L (21-32); CHLORIDE 105 mEq/L (98-107); POTASSIUM 4.2 mEq/L (3.5-5.1)
[2023-08-31 06:39] LABS: CALCIUM 8.8 mg/dL (8.7-10.4)
[2023-08-31 06:43] LABS: CREATININE 1.8 mg/dL (0.6-1.3); GLUCOSE 110 mg/dL (70-105)
[2023-08-31 06:44] LABS: UREA NITROGEN BLOOD 22 mg/dL (9-23)
[2023-08-31 06:46] LABS: PHOSPHORUS 5.6 mg/dL (2.5-4.9)
[2023-08-31 06:59] LABS: SODIUM 135 mEq/L (136-145)
[2023-08-31] MEDS: FUROSEMIDE 20MG/2ML VIAL IVP NR (08:40)
[2023-08-31] MEDS: FAMOTIDINE 20MG TABLET PO SCH (08:41)
[2023-08-31] MEDS: TAMSULOSIN HCL 0.4MG SR CAPSULE PO SCH (08:44)
[2023-08-31] MEDS ORDERED: FAMOTIDINE 20MG/2ML VIAL IV SCH (09:00)
[2023-08-31] MEDS: INSULIN GLARGINE 100 UNITS/ML SUBCUT SCH (11:06)
[2023-08-31] MEDS: BLOOD SUGAR DIAGNOSTIC STRIP TEST SCH ×2 (12:04→21:00)
[2023-08-31] MEDS ORDERED: LACTULOSE 20G/30ML UDC PO SCH (18:00)
[2023-08-31] MEDS ORDERED: DEXTROSE 50% WATER 50ML SYRINGE IV PRN (18:00)
[2023-08-31] MEDS: INSULIN LISPRO 100 UNITS/ML SUBCUT SCH (18:20)
[2023-08-31] MEDS: ATORVASTATIN CALCIUM 40MG TABLET PO SCH (21:36)
[2023-08-31] MEDS: LACTULOSE 20G/30ML UDC PO SCH (21:36)
[2023-09-01] VITALS (12 sets, daily range): BP systolic 110–127; BP diastolic 64–77; PULSE 82–96; RESP 14–21; TEMP 98.4–99; O2SAT 94–96
[2023-09-01 07:07] LABS: BASOPHILS % 0.3 % (0.0-2.0); HEMATOCRIT. 32.3 % (42.0-52.0); HEMOGLOBIN. 11.1 g/dL (14.0-18.0); LYMPHOCYTES % 10.2 % (20.0-50.0); MEAN CORPUSCULAR HEMOGLOBIN 30.8 pg (28.0-32.0); MEAN CORPUSCULAR HGB CONC 34.4 g/dL (31.0-37.0); MEAN CORPUSCULAR VOLUME 89.6 fL (80.0-94.0); MEAN PLATELET VOLUME 7.9 fl (7.4-10.4); MONOCYTES % 7.2 % (2.0-8.0); NEUTROPHILS % 81.3 % (40.0-76.0); PLATELET 239 x1000/uL (130-400); RED BLOOD CELL COUNT 3.61 mill/uL (4.7-6.1); RED CELL DISTRIBUTION WIDTH 14.1 % (11.6-14.6); WHITE BLOOD COUNT 9.4 x1000/uL (4.5-11.0)
[2023-09-01 07:24] LABS: CHLORIDE 104 mEq/L (98-107); POTASSIUM 4.6 mEq/L (3.5-5.1); SODIUM 133 mEq/L (136-145)
[2023-09-01 07:25] LABS: CALCIUM 8.5 mg/dL (8.7-10.4); CARBON DIOXIDE 23 mEq/L (21-32)
[2023-09-01 07:30] LABS: CREATININE 1.6 mg/dL (0.6-1.3); GLUCOSE 87 mg/dL (70-105); UREA NITROGEN BLOOD 33 mg/dL (9-23)
[2023-09-01] MEDS: CALCIUM ACETATE 667MG CAPSULE PO SCH (12:20)
[2023-09-01 15:01] LABS: BASOPHILS % 0.3 % (0.0-2.0); EOSINOPHILS % 0.7 % (0.0-5.0); HEMATOCRIT. 32.4 % (42.0-52.0); HEMOGLOBIN. 11.1 g/dL (14.0-18.0); LYMPHOCYTES % 11.8 % (20.0-50.0); MEAN CORPUSCULAR HEMOGLOBIN 30.6 pg (28.0-32.0); MEAN CORPUSCULAR HGB CONC 34.2 g/dL (31.0-37.0); MEAN CORPUSCULAR VOLUME 89.4 fL (80.0-94.0); MEAN PLATELET VOLUME 7.5 fl (7.4-10.4); NEUTROPHILS % 80.2 % (40.0-76.0); PLATELET 256 x1000/uL (130-400); RED BLOOD CELL COUNT 3.63 mill/uL (4.7-6.1); RED CELL DISTRIBUTION WIDTH 13.7 % (11.6-14.6); WHITE BLOOD COUNT 8.1 x1000/uL (4.5-11.0)
[2023-09-01 15:06] LABS: POTASSIUM 4.6 mEq/L (3.5-5.1)
[2023-09-01 15:07] LABS: CALCIUM 8.4 mg/dL (8.7-10.4)
[2023-09-01 15:11] LABS: CREATININE 1.6 mg/dL (0.6-1.3)
[2023-09-02] VITALS (12 sets, daily range): BP systolic 118–139; BP diastolic 65–75; PULSE 83–98; RESP 12–22; TEMP 98–98.7; O2SAT 97–100
[2023-09-02] MEDS: OXYCODONE HCL/ACETAMINOPHEN 5/325MG TABLET PO PRN (13:49)
[2023-09-03] VITALS (11 sets, daily range): BP systolic 116–136; BP diastolic 60–87; PULSE 86–102; RESP 12–22; TEMP 97.6–98.7; O2SAT 88–98
[2023-09-03 07:14] LABS: BASOPHILS % 0.4 % (0.0-2.0); EOSINOPHILS % 3.8 % (0.0-5.0); HEMATOCRIT. 32.3 % (42.0-52.0); HEMOGLOBIN. 11.2 g/dL (14.0-18.0); LYMPHOCYTES % 21.3 % (20.0-50.0); MEAN CORPUSCULAR HEMOGLOBIN 30.9 pg (28.0-32.0); MEAN CORPUSCULAR HGB CONC 34.7 g/dL (31.0-37.0); MEAN CORPUSCULAR VOLUME 88.9 fL (80.0-94.0); MEAN PLATELET VOLUME 7.2 fl (7.4-10.4); MONOCYTES % 9.3 % (2.0-8.0); NEUTROPHILS % 65.2 % (40.0-76.0); PLATELET 337 x1000/uL (130-400); RED BLOOD CELL COUNT 3.63 mill/uL (4.7-6.1); RED CELL DISTRIBUTION WIDTH 13.5 % (11.6-14.6); WHITE BLOOD COUNT 7.7 x1000/uL (4.5-11.0)
[2023-09-03 07:18] LABS: CARBON DIOXIDE 25 mEq/L (21-32); CHLORIDE 105 mEq/L (98-107); POTASSIUM 4.6 mEq/L (3.5-5.1); SODIUM 133 mEq/L (136-145)
[2023-09-03 07:24] LABS: CREATININE 1.4 mg/dL (0.6-1.3); GLUCOSE 103 mg/dL (70-105); UREA NITROGEN BLOOD 37 mg/dL (9-23)
[2023-09-03 07:26] LABS: PHOSPHORUS 5.6 mg/dL (2.5-4.9)
[2023-09-03] MEDS ORDERED: MORPHINE SULFATE 4 MG/ML INJ (FOR IV/IM USE) IV PRN (22:15)
[2023-09-03] MEDS: OXYCODONE HCL/ACETAMINOPHEN 5/325MG TABLET PO PRN (22:33)
[2023-09-04] VITALS: BP 120/70; PULSE 84; RESP 14; TEMP 98.6
[2023-09-04 04:09] VITALS: BP 132/77; PULSE 78; RESP 15; TEMP 97.6
[2023-09-04 06:40] LABS: CALCIUM 8.9 mg/dL (8.7-10.4)
[2023-09-04 06:41] LABS: BASOPHILS % 0.4 % (0.0-2.0); EOSINOPHILS % 4.8 % (0.0-5.0); HEMATOCRIT. 32.8 % (42.0-52.0); HEMOGLOBIN. 11.4 g/dL (14.0-18.0); MEAN CORPUSCULAR HEMOGLOBIN 30.8 pg (28.0-32.0); MEAN CORPUSCULAR HGB CONC 34.7 g/dL (31.0-37.0); MEAN CORPUSCULAR VOLUME 88.7 fL (80.0-94.0); MEAN PLATELET VOLUME 7.4 fl (7.4-10.4); MONOCYTES % 9.7 % (2.0-8.0); NEUTROPHILS % 65.1 % (40.0-76.0); PLATELET 364 x1000/uL (130-400); RED CELL DISTRIBUTION WIDTH 13.7 % (11.6-14.6)
[2023-09-04 06:45] LABS: CREATININE 1.3 mg/dL (0.6-1.3)
[2023-09-04 08:00] VITALS: BP 146/80; PULSE 84; RESP 15; TEMP 97.9
[2023-09-04] MEDS: SODIUM POLYSTYRENE SULFONATE 15 G/60 ML BOT PO NR (09:24)
[2023-09-04] MEDS: INSULIN GLARGINE 100 UNITS/ML SUBCUT SCH (09:25)
[2023-09-04] MEDS ORDERED: NALOXONE HCL 0.4MG/ML VIAL IV PRN (09:45)
[2023-09-04 09:55] LABS: PHOSPHORUS 5.3 mg/dL (2.5-4.9)
[2023-09-04 12:00] VITALS: BP 109/72; PULSE 85; RESP 17; TEMP 98.9
[2023-09-04] MEDS: FUROSEMIDE 40MG/4ML VIAL IVP NR (12:51)
[2023-09-04 12:54] LABS: BG BASE EXCESS 3.2 mmol/L (-2.0-2.0); BG CARBOXYHEMOGLOBIN 0.9 % (0.5-1.5); BG DEOXYHEMOGLOBIN 12.2 % (0.0-5.0); BG FRACTION INSPIRED OXYGEN 21; BG HCO3 ACT 27.2 mmol/L (22.0-26.0); BG METHEMOGLOBIN 0.1 % (0.0-1.5); BG OXYGEN SATURATION 87.7 % (92.0-98.5); BG OXYHEMOGLOBIN 86.8 % (94.0-97.0); BG PH 7.461 (7.350-7.450); BG PO2 50.5 mmHg (75.0-100.0); BG SAMPLE SITE LEFT RADIAL; BG TOTAL HEMOGLOBIN 11.1 g/dL (12.0-18.0); BG VENT MODE ROOM AIR
[2023-09-04 16:00] VITALS: BP 141/74; PULSE 86; RESP 20; TEMP 98.9
[2023-09-04 20:00] VITALS: BP 127/78; PULSE 83; RESP 15; TEMP 98.3
[2023-09-05] VITALS: BP 106/66; PULSE 88; RESP 14; TEMP 97.3
[2023-09-05 04:00] VITALS: BP 116/70; PULSE 76; RESP 14; TEMP 98.3
[2023-09-05 07:24] LABS: BASOPHILS % 0.5 % (0.0-2.0); EOSINOPHILS % 5.4 % (0.0-5.0); HEMATOCRIT. 31.6 % (42.0-52.0); LYMPHOCYTES % 26.5 % (20.0-50.0); MEAN CORPUSCULAR HEMOGLOBIN 30.7 pg (28.0-32.0); MEAN CORPUSCULAR HGB CONC 34.7 g/dL (31.0-37.0); MEAN CORPUSCULAR VOLUME 88.6 fL (80.0-94.0); MONOCYTES % 8.2 % (2.0-8.0); NEUTROPHILS % 59.4 % (40.0-76.0); PLATELET 417 x1000/uL (130-400); RED BLOOD CELL COUNT 3.57 mill/uL (4.7-6.1); RED CELL DISTRIBUTION WIDTH 13.3 % (11.6-14.6); WHITE BLOOD COUNT 8.7 x1000/uL (4.5-11.0)
[2023-09-05 07:36] LABS: CALCIUM 8.2 mg/dL (8.7-10.4); CARBON DIOXIDE 26 mEq/L (21-32); CHLORIDE 106 mEq/L (98-107); POTASSIUM 4.4 mEq/L (3.5-5.1); SODIUM 136 mEq/L (136-145)
[2023-09-05 07:40] LABS: CREATININE 1.3 mg/dL (0.6-1.3); GLUCOSE 172 mg/dL (70-105)
[2023-09-05 07:42] LABS: UREA NITROGEN BLOOD 37 mg/dL (9-23)
[2023-09-05 07:44] LABS: PHOSPHORUS 4.4 mg/dL (2.5-4.9)
[2023-09-05] MEDS ORDERED: FAMO20TA8 PO (09:49)
[2023-09-05] MEDS ORDERED: METO-385 PO (09:49)
[2023-09-05] MEDS ORDERED: LIP40 PO (09:49)
[2023-09-05] MEDS ORDERED: LANTUSUD SUBCUT (09:49)
[2023-09-05] MEDS ORDERED: TAMS-11 PO (09:49)
[2023-09-05] MEDS ORDERED: ASPI-1406 PO (09:49)
[2023-09-05] MEDS ORDERED: FURO40TA5 MT (09:50)
[2023-09-05 12:00] VITALS: BP 121/74; PULSE 91; RESP 19; TEMP 98
[2023-09-05] MEDS: INSULIN GLARGINE 100 UNITS/ML SUBCUT SCH (12:27)
[2023-09-05] MEDS: FUROSEMIDE 20MG TABLET PO SCH (12:27)
[2023-09-05 16:00] VITALS: BP 108/71; PULSE 97; RESP 20; TEMP 97.6
[2023-09-05 20:00] VITALS: BP 131/73; PULSE 98; RESP 16; TEMP 98.3
[2023-09-05] MEDS: INSULIN LISPRO 100 UNITS/ML SUBCUT SCH (22:03)
[2023-09-05] MEDS: INSULIN LISPRO 100 UNITS/ML SUBCUT NR (22:04)
[2023-09-06] VITALS: BP 123/72; PULSE 90; RESP 15; TEMP 97.6
[2023-09-06 04:00] VITALS: BP 141/77; PULSE 74; RESP 13; TEMP 98.3
[2023-09-06 05:54] LABS: POTASSIUM 3.7 mEq/L (3.5-5.1)
[2023-09-06 05:55] LABS: CALCIUM 8.4 mg/dL (8.7-10.4)
[2023-09-06 05:59] LABS: CREATININE 1.3 mg/dL (0.6-1.3)
[2023-09-06 06:09] LABS: BASOPHILS % 0.5 % (0.0-2.0); EOSINOPHILS % 1.6 % (0.0-5.0); HEMATOCRIT. 29.3 % (42.0-52.0); HEMOGLOBIN. 10.3 g/dL (14.0-18.0); LYMPHOCYTES % 11.8 % (20.0-50.0); MEAN CORPUSCULAR HGB CONC 35.2 g/dL (31.0-37.0); MEAN CORPUSCULAR VOLUME 88.2 fL (80.0-94.0); MEAN PLATELET VOLUME 7.1 fl (7.4-10.4); MONOCYTES % 6.4 % (2.0-8.0); NEUTROPHILS % 79.7 % (40.0-76.0); PLATELET 473 x1000/uL (130-400); RED BLOOD CELL COUNT 3.32 mill/uL (4.7-6.1); RED CELL DISTRIBUTION WIDTH 13.3 % (11.6-14.6); WHITE BLOOD COUNT 12.1 x1000/uL (4.5-11.0)
[2023-09-06 08:00] VITALS: BP 147/81; PULSE 102; RESP 16; TEMP 97.6
[2023-09-06 10:21] VITALS: BP 121/76; PULSE 97; TEMP 97.6; O2SAT 94
== END 2023-09-06 12:01 | DRG 165 ==
LOC: ER 16:42 → 5WST 19:14 → EDBEDREQ 19:16 → 7WST 08-22 02:09 → CVICU 08-29 11:31 → 3WST 08-31 23:00
PROVIDERS: ADMIT Internal Medicine; ATTEND Internal Medicine
PROC: 4A023N7 Measurement of Cardiac Sampling and Pressure, Left Heart, Percutaneous Approach (ICD-10-PCS; 2023-08-23)
PROC: B211YZZ Fluoroscopy of Multiple Coronary Arteries using Other Contrast (ICD-10-PCS; 2023-08-23)
PROC: B215YZZ Fluoroscopy of Left Heart using Other Contrast (ICD-10-PCS; 2023-08-23)
PROC: 02100Z9 Bypass Coronary Artery, One Artery from Left Internal Mammary, Open Approach (ICD-10-PCS; principal; 2023-08-29)
PROC: 021109W Bypass Coronary Artery, Two Arteries from Aorta with Autologous Venous Tissue, Open Approach (ICD-10-PCS; 2023-08-29)
PROC: 06BP4ZZ Excision of Right Saphenous Vein, Percutaneous Endoscopic Approach (ICD-10-PCS; 2023-08-29)
PROC: 5A1221Z Performance of Cardiac Output, Continuous (ICD-10-PCS; 2023-08-29)
PROC: B24BZZ4 Ultrasonography of Heart with Aorta, Transesophageal (ICD-10-PCS; 2023-08-29)
PROC: 30233N1 Transfusion of Nonautologous Red Blood Cells into Peripheral Vein, Percutaneous Approach (ICD-10-PCS; 2023-08-29)
DX: I21.4 Non-ST elevation (NSTEMI) myocardial infarction (principal); J95.821 Acute postprocedural respiratory failure; G93.40 Encephalopathy, unspecified; E83.51 Hypocalcemia; I13.0 Hypertensive heart and chronic kidney disease with heart failure and stage 1 through stage 4 chronic kidney disease, or unspecified chronic kidney disease; I50.32 Chronic diastolic (congestive) heart failure; E11.22 Type 2 diabetes mellitus with diabetic chronic kidney disease; D50.9 Iron deficiency anemia, unspecified; E87.1 Hypo-osmolality and hyponatremia; I25.10 Atherosclerotic heart disease of native coronary artery without angina pectoris; E88.09 Other disorders of plasma-protein metabolism, not elsewhere classified; N17.9 Acute kidney failure, unspecified; D72.829 Elevated white blood cell count, unspecified; E11.65 Type 2 diabetes mellitus with hyperglycemia; T50.995A Adverse effect of other drugs, medicaments and biological substances, initial encounter; E78.5 Hyperlipidemia, unspecified; I95.2 Hypotension due to drugs; E87.6 Hypokalemia; I16.1 Hypertensive emergency; N18.9 Chronic kidney disease, unspecified; F17.210 Nicotine dependence, cigarettes, uncomplicated; Z79.4 Long term (current) use of insulin; Z79.82 Long term (current) use of aspirin; Z79.84 Long term (current) use of oral hypoglycemic drugs; Z79.899 Other long term (current) drug therapy; Y92.89 Other specified places as the place of occurrence of the external cause
CPT/HCPCS: 36415; 36600; 71045; 71250; 76770; 80048; 80053; 80061; 80320; 81003; 82010; 82375; 82550; 82553; 82570; 82607; 82728; 82746; 82805; 82962; 83036; 83540; 83550; 83605; 83735; 83880; 83930; 84100; 84145; 84155; 84156; 84165; 84439; 84443; 84484; 85025; 85027; 85347; 85379; 85384; 86038; 86160; 86705; 86850; 86900; 86920; 87340; 93005; 93306; 93458; 93880; 93970; 94640; 97110; 97116; 97162; 97166; 97530; 97535; 99291; C1729; C1751; C1769; C1887; C1893; J0360; J0690; J1200; J1250; J1265; J1644; J1650; J1815; J1940; J2060; J2250; J2270; J2405; J2440; J2597; J2704; J2710; J2720; J2765; J3010; J3490; J7030; J7050; J7060; L3908; P9016; P9041; Q9957; Q9967; A4315; G0480